=== PATIENT | female | born 1995 ===

== ENCOUNTER → 2017-01-12 | Outpatient (REF) | LOC: WSOH 09:59 | DX: Z00.00 Encounter for general adult medical examination without abnormal findings (principal) ==

== ENCOUNTER → 2017-01-15 | Outpatient (REF) | LOC: WSOH 09:15 | DX: Z02.1 Encounter for pre-employment examination (principal) ==

== ENCOUNTER → 2017-02-20 | Outpatient (REF) | LOC: WSOH 07:59 | DX: Z02.89 Encounter for other administrative examinations (principal) ==